=== PATIENT | male | born 1985 | race African-American/Black ===

== ENCOUNTER 2019-01-16 17:43 | Emergency (ER) | payer OTHER ==
--- NOTE | 2019-01-16 18:37 | RAD ---
LEFT ANKLE THREE VIEWS: 01/16/19 HISTORY: Ankle injury. There is no signs of fracture, dislocation, or joint effusion. IMPRESSION: Negative left ankle. POS: [facility]
[2019-01-16] MEDS ORDERED: Ibuprofen 800 MG TAB ONE (18:57)
== END 2019-01-16 19:00 ==
LOC: MADERS 17:43
DX: S93.402A Sprain of unspecified ligament of left ankle, initial encounter (principal); S80.811A Abrasion, right lower leg, initial encounter; F17.210 Nicotine dependence, cigarettes, uncomplicated; X50.9XXA Other and unspecified overexertion or strenuous movements or postures, initial encounter